=== PATIENT | male | born 1955 | race Native Hawaiian/Other Pacific Islander ===

== ENCOUNTER 2020-02-17 08:14 | Outpatient (CLI) | payer BC ==
[2020-02-17 08:37] LABS: PLATELET COUNT 203 K/uL (142-355)
[2020-02-17 08:53] LABS: POTASSIUM 4.6 mmol/L (3.6-5.2)
== END 2020-02-17 19:14 | disposition home or self-care (01) ==
LOC: LABW 08:14
PROVIDERS: ATTEND Internal Medicine
DX: Z20.828 Contact with and (suspected) exposure to other viral communicable diseases (principal); I10 Essential (primary) hypertension; R73.9 Hyperglycemia, unspecified
CPT/HCPCS: 36415; 80053; 80061; 81000; 83036; 84439; 84443; 84550; 85027; 86769

== ENCOUNTER 2021-03-11 16:25 | Outpatient (CLI) | payer BC | END 2021-03-11 19:58 | disposition home or self-care (01) | LOC: LAB 16:25 | PROVIDERS: ATTEND Internal Medicine | DX: E87.5 Hyperkalemia (principal) | CPT/HCPCS: 36415; 84132 ==

== ENCOUNTER 2021-07-31 11:42 | Outpatient (CLI) | payer BC | END 2021-07-31 19:14 | disposition home or self-care (01) | LOC: US 11:42 | PROVIDERS: ATTEND Internal Medicine | DX: U07.1 COVID-19 (principal); M79.604 Pain in right leg; R60.0 Localized edema ==

== ENCOUNTER 2021-10-04 08:14 | Outpatient (CLI) | payer BC ==
[2021-10-04 08:52] LABS: PLATELET COUNT 205 K/uL (142-355)
[2021-10-04 09:02] LABS: POTASSIUM 4.3 mmol/L (3.6-5.2)
== END 2021-10-04 19:15 | disposition home or self-care (01) ==
LOC: LABW 08:14
PROVIDERS: ATTEND Internal Medicine
DX: I10 Essential (primary) hypertension (principal)
CPT/HCPCS: 36415; 80053; 80061; 81002; 85027